=== PATIENT | male | born 2000 | race Two or more races ===

== ENCOUNTER 2018-09-27 00:02 | Emergency (ER) | payer SELFPAY ==
[~2018-09-27] VITALS: Ht 180.3 cm; Wt 108.5 kg
[2018-09-27 00:09] VITALS: BP 134/82
[2018-09-27 00:41] LABS: Basophils # (auto) 0 uL; Basophils % (auto) 0.3 % (0.0-2.0); Eosinophils # (auto) 0.1 uL; Eosinophils % (auto) 1.3 % (0.0-7.0); Hematocrit 50.5 % (41.0-53.0); Hemoglobin 17.1 g/dL (13.5-17.5); Lymphocytes # (auto) 1.9 uL; Mean Corpuscular Hemoglobin 29.8 pg (28.0-32.0); Mean Corpuscular Hgb Conc. 33.8 g/dL (32.0-36.0); Mean Corpuscular Volume 88.3 fL (80.0-100.0); Monocytes # (auto) 0.8 uL; Monocytes % (auto) 9.5 % (0.0-12.0); Neutrophils # (auto) 5.5 uL; Neutrophils % (auto) 65.9 % (37.0-80.0); Nucleated Red Blood Cells % 0.1 %; Platelet Count (auto) 230 10^3/uL (140-450); Red Blood Cells 5.73 10^6/uL (4.5-5.90); Red Cell Distribution Width 13.9 % (11.8-14.3); White Blood Cell 8.3 10^3/uL (4.4-10.8)
[2018-09-27 00:50] LABS: Albumin 3.9 g/dL (3.4-5.0); BUN/Creatinine Ratio 6.7; Calcium 8.6 mg/dL (8.5-10.1); Potassium 3.9 mmol/L (3.5-5.1)
[2018-09-27 00:53] LABS: Bilirubin, Total 0.3 mg/dL (0.2-1.0); Total Protein 8.6 g/dL (6.4-8.2)
== END 2018-09-27 05:38 | disposition left against medical advice (07) ==
LOC: ER 00:08
DX: R10.9 Unspecified abdominal pain (principal); Z53.21 Procedure and treatment not carried out due to patient leaving prior to being seen by health care provider
CPT/HCPCS: 36415; 74176; 80053; 83690; 85025

== ENCOUNTER 2018-12-29 02:09 | Emergency (ER) | payer SELFPAY ==
[~2018-12-29] VITALS: Ht 180.3 cm; Wt 113.4 kg
[2018-12-29 02:17] VITALS: BP 152/101
== END 2018-12-29 06:31 | disposition left against medical advice (07) ==
LOC: ER 02:11
DX: M79.642 Pain in left hand (principal); Z53.21 Procedure and treatment not carried out due to patient leaving prior to being seen by health care provider

== ENCOUNTER 2019-01-06 03:29 | Emergency (ER) | payer SELFPAY ==
[~2019-01-06] VITALS: Ht 180.3 cm; Wt 113.4 kg
[2019-01-06 03:40] VITALS: BP 156/89
[2019-01-06] MEDS ORDERED: HYDROcodone-ACET 5/325MG TAB PO ONE (07:15)
== END 2019-01-06 07:40 | disposition home or self-care (01) ==
LOC: ER 03:31
DX: S62.357A Nondisplaced fracture of shaft of fifth metacarpal bone, left hand, initial encounter for closed fracture (principal); W22.8XXA Striking against or struck by other objects, initial encounter; Y93.89 Activity, other specified; Y99.8 Other external cause status; Y92.89 Other specified places as the place of occurrence of the external cause
CPT/HCPCS: 73130

== ENCOUNTER 2019-10-05 15:18 | Inpatient (IN) | payer MEDICAID ==
[~2019-10-05] VITALS: Ht 172.7 cm; Wt 103.1 kg
[2019-10-05] MEDS ORDERED: SODIUM CHLORIDE 0.9% 1,000 ML IVB ONE (15:41)
[2019-10-05] MEDS ORDERED: PANTOPRAZOLE 40 MG/10 ML VIAL INJ IV STA (15:41)
[2019-10-05] MEDS ORDERED: ONDANSETRON HCL 4 MG/2 ML VIAL IV ONE (15:45)
[2019-10-05] MEDS ORDERED: MORPHINE SULFATE 4 MG/ML SYR/VIAL IV ONE (15:45)
[2019-10-05 16:33] LABS: Basophils # (auto) 0 10 ^3/uL (0-0.2); Basophils % (auto) 0.4 % (0.0-2.0); Eosinophils # (auto) 0.1 10 ^3/uL (0-0.8); Eosinophils % (auto) 1.2 % (0.0-7.0); Hematocrit 47.3 % (41.0-53.0); Hemoglobin 16.3 g/dL (13.5-17.5); Lymphocytes # (auto) 1.3 10 ^3/uL (0.4-5.4); Lymphocytes % (auto) 11.8 % (10.0-50.0); Mean Corpuscular Hgb Conc. 34.4 g/dL (32.0-36.0); Mean Corpuscular Volume 90.1 fL (80.0-100.0); Monocytes # (auto) 0.8 10 ^3/uL (0-1.3); Monocytes % (auto) 7.2 % (0.0-12.0); Neutrophils # (auto) 8.5 10 ^3/uL (1.6-8.6); Neutrophils % (auto) 79.4 % (37.0-80.0); Nucleated Red Blood Cells % 0.1 %; Platelet Count (auto) 229 10^3/uL (140-450); Red Blood Cells 5.24 10^6/uL (4.5-5.90); Red Cell Distribution Width 13.6 % (11.8-14.3); White Blood Cell 10.8 10^3/uL (4.4-10.8)
[2019-10-05 16:37] LABS: Albumin 3.5 g/dL (3.4-5.0); Calcium 8.6 mg/dL (8.5-10.1); Potassium 3.8 mmol/L (3.5-5.1)
[2019-10-05 16:45] LABS: Bilirubin, Total 0.7 mg/dL (0.2-1.0); Total Protein 8.3 g/dL (6.4-8.2)
[2019-10-05 18:30] LABS: BUN/Creatinine Ratio 8.4
[2019-10-05] MEDS ORDERED: NITROGLYCERIN 0.4 MG SL TAB SL PRN (18:30)
[2019-10-05] MEDS ORDERED: chlordiazePOXIDE HCL 25 MG CAP PO PRN (18:30)
[2019-10-05] MEDS ORDERED: PROMETHAZINE HCL 25 MG/ML 1ML IV PRN (18:30)
[2019-10-05] MEDS ORDERED: MORPHINE SULF INJ 2 MG/ML SYRINGE 1ML IV PRN (18:30)
[2019-10-05] MEDS: SODIUM CHLORIDE 0.9% 1,000 ML IV SCH (18:34)
[2019-10-05] MEDS ORDERED: IOHEXOL 300 MG/ML 100ML BOTTLE IJ ONE (18:41)
[2019-10-05] MEDS ORDERED: hydrALAZINE HCL 20 MG/ML VL IV ONE (20:15)
[2019-10-05] MEDS ORDERED: hydrALAZINE HCL 20 MG/ML VL ONE (20:23)
[2019-10-05] MEDS: MORPHINE SULF INJ 2 MG/ML SYRINGE 1ML IV PRN (21:10)
[2019-10-06] MEDS: hydrALAZINE HCL 20 MG/ML VL IV PRN (02:06)
[2019-10-06 02:39] LABS: Urine Bacteria NONE SEEN /hpf (None Seen); Urine Blood Negative /uL (Negative); Urine Specific Gravity 1.047 (1.001-1.035); Urine WBC 1 /hpf (0 - 3)
[2019-10-06 02:42] LABS: Alcohol, Urine < 3.0 mg/dL (0-5); Amphetamine Screen, Urine NEGATIVE (NEGATIVE); Barbiturate Scree,Urine NEGATIVE (NEGATIVE); Benzodiazephine Screen, Urine NEGATIVE (NEGATIVE); Cannabinoid Screen, Urine NEGATIVE (NEGATIVE); Cocaine Screen, Urine NEGATIVE (NEGATIVE); Opiate Scree,Urine POSITIVE (NEGATIVE); Phencyclidine Screen, Urine NEGATIVE (NEGATIVE)
[2019-10-06] MEDS: MORPHINE SULF INJ 2 MG/ML SYRINGE 1ML IV PRN (03:36)
[2019-10-06 03:40] VITALS: BP 152/82
[2019-10-06] MEDS: SODIUM CHLORIDE 0.9% 1,000 ML IV SCH ×2 (04:30→15:04)
[2019-10-06 05:00] VITALS: BP 144/73
[2019-10-06 06:48] LABS: Basophils # (auto) 0 10 ^3/uL (0-0.2); Basophils % (auto) 0.3 % (0.0-2.0); Eosinophils # (auto) 0.1 10 ^3/uL (0-0.8); Hematocrit 44.3 % (41.0-53.0); Hemoglobin 15.5 g/dL (13.5-17.5); Lymphocytes # (auto) 0.9 10 ^3/uL (0.4-5.4); Lymphocytes % (auto) 8.9 % (10.0-50.0); Mean Corpuscular Hemoglobin 31.1 pg (28.0-32.0); Mean Corpuscular Hgb Conc. 34.9 g/dL (32.0-36.0); Mean Corpuscular Volume 89.2 fL (80.0-100.0); Monocytes # (auto) 0.8 10 ^3/uL (0-1.3); Monocytes % (auto) 7.4 % (0.0-12.0); Neutrophils # (auto) 8.5 10 ^3/uL (1.6-8.6); Neutrophils % (auto) 82.4 % (37.0-80.0); Platelet Count (auto) 194 10^3/uL (140-450); Red Blood Cells 4.97 10^6/uL (4.5-5.90); Red Cell Distribution Width 13.8 % (11.8-14.3); White Blood Cell 10.3 10^3/uL (4.4-10.8)
[2019-10-06 07:03] LABS: Potassium 3.8 mmol/L (3.5-5.1)
[2019-10-06 07:12] LABS: Albumin 3.1 g/dL (3.4-5.0); BUN/Creatinine Ratio 7.4; Bilirubin, Total 0.8 mg/dL (0.2-1.0); Calcium 8.4 mg/dL (8.5-10.1); Total Protein 7.5 g/dL (6.4-8.2)
[2019-10-06 09:00] VITALS: BP 155/83
[2019-10-06 13:00] VITALS: BP 137/80
[2019-10-06] MEDS ORDERED: FAMOTIDINE (10MG/ML) 2ML VL IV ONE (13:00)
[2019-10-06] MEDS ORDERED: HYDROcodone-ACET 5/325MG TAB PO PRN (13:00)
[2019-10-06] MEDS ORDERED: THIAMINE HCL 100 MG TAB PO ONE (13:00)
[2019-10-06] MEDS: FOLIC ACID 1 MG, MULTIPLE VITAMIN 10 ML, MAGNESIUM SULF SDV 50% 8 MEQ in D5W 5% 1,000 ML INJ SCH (15:14)
[2019-10-06 17:00] VITALS: BP 151/88
[2019-10-06 22:00] VITALS: BP 158/80
[2019-10-07] MEDS: SODIUM CHLORIDE 0.9% 1,000 ML IV SCH ×3 (00:30→23:21)
[2019-10-07 05:00] VITALS: BP 156/99
[2019-10-07 06:06] LABS: Potassium 3.5 mmol/L (3.5-5.1)
[2019-10-07 06:15] LABS: BUN/Creatinine Ratio 5.7; Calcium 8.4 mg/dL (8.5-10.1); Total Protein 7.4 g/dL (6.4-8.2)
[2019-10-07 08:00] VITALS: BP 142/86
[2019-10-07 09:00] VITALS: BP 142/86
[2019-10-07] MEDS: FAMOTIDINE (10MG/ML) 2ML VL IV SCH (09:25)
[2019-10-07] MEDS: THIAMINE HCL 100 MG TAB PO SCH (09:25)
[2019-10-07] MEDS: FOLIC ACID 1 MG, MULTIPLE VITAMIN 10 ML, MAGNESIUM SULF SDV 50% 8 MEQ in D5W 5% 1,000 ML INJ SCH (12:00)
[2019-10-07] MEDS ORDERED: cloNIDine HCL 0.1 MG TAB PO ONE (12:15)
[2019-10-07 13:00] VITALS: BP 133/80
[2019-10-07 17:00] VITALS: BP 140/88
[2019-10-07] MEDS: cloNIDine HCL 0.1 MG TAB PO SCH (21:14)
[2019-10-07 22:00] VITALS: BP 153/102
[2019-10-08] MEDS: hydrALAZINE HCL 20 MG/ML VL IV PRN (04:26)
[2019-10-08 05:00] VITALS: BP 155/102
[2019-10-08] MEDS: SODIUM CHLORIDE 0.9% 1,000 ML IV SCH (06:30)
[2019-10-08 09:00] VITALS: BP 127/78
[2019-10-08] MEDS: FAMOTIDINE (10MG/ML) 2ML VL IV SCH (10:00)
[2019-10-08] MEDS: THIAMINE HCL 100 MG TAB PO SCH (10:00)
[2019-10-08] MEDS: cloNIDine HCL 0.1 MG TAB PO SCH (10:00)
[2019-10-08] MEDS ORDERED: FOLIC ACID 1 MG, MULTIPLE VITAMIN 10 ML, MAGNESIUM SULF SDV 50% 8 MEQ, THIAMINE INJ 100... INJ SCH ×5 (12:00)
[2019-10-08 13:00] VITALS: BP 140/85
[2019-10-08 13:35] VITALS: BP 155/102
== END 2019-10-08 14:30 | disposition home or self-care (01) | DRG 282 ==
LOC: ER 15:18 → OVERFLOW 15:19 → WEST WING 10-06 02:43
PROVIDERS: ADMIT Nurse Practitioner Acute Care; ATTEND Internal Medicine
DX: K85.20 Alcohol induced acute pancreatitis without necrosis or infection (principal); K76.0 Fatty (change of) liver, not elsewhere classified; E66.9 Obesity, unspecified; I10 Essential (primary) hypertension; F10.10 Alcohol abuse, uncomplicated; Z68.34 Body mass index [BMI] 34.0-34.9, adult
CPT/HCPCS: 36415; 74177; 76705; 80053; 80061; 80307; 81001; 83690; 85025; 96361; 96374; 96375; C9113; G0378; J2405; J3490

== ENCOUNTER 2023-02-23 19:21 | Inpatient (IN) | payer MEDICAID ==
[~2023-02-23] VITALS: Ht 167.6 cm; Wt 40.0 kg
[2023-02-23] MEDS ORDERED: SODIUM CHLORIDE 0.9% 1,000 ML IVB STA (19:45)
[2023-02-23] MEDS ORDERED: NALOXONE HCL 1MG/ML 2ML SYRINGE IV ONE ×2 (19:45→20:15)
[2023-02-23 20:00] VITALS: RESP 10; O2SAT 96
[2023-02-23] MEDS ORDERED: SODIUM CHLORIDE 0.9% 2,000 ML IV ONE (20:15)
[2023-02-23] MEDS ORDERED: PIPERACILLIN-TAZOB 3.375GM 100 ML IV ONE (20:15)
[2023-02-23 20:36] LABS: Eosinophils # (auto) 0 10 ^3/uL (0-0.8); Eosinophils % (auto) 0.2 % (0.0-7.0); Hemoglobin 13.3 g/dL (13.5-17.5); Mean Corpuscular Volume 89.5 fL (80.0-100.0)
[2023-02-23 20:39] LABS: Basophils # (auto) 0.1 10 ^3/uL (0-0.2); Basophils % (auto) 0.3 % (0.0-2.0); Hematocrit 43.1 % (41.0-53.0); Lymphocytes % (auto) 6.2 % (10.0-50.0); Mean Corpuscular Hemoglobin 27.6 pg (28.0-32.0); Mean Corpuscular Hgb Conc. 30.8 g/dL (32.0-36.0); Monocytes # (auto) 1.3 10 ^3/uL (0-1.3); Monocytes % (auto) 8.1 % (0.0-12.0); Neutrophils # (auto) 13.9 10 ^3/uL (1.6-8.6); Neutrophils % (auto) 85.2 % (37.0-80.0); Red Blood Cells 4.82 10^6/uL (4.5-5.90); Red Cell Distribution Width 13.7 % (11.8-14.3); White Blood Cell 16.4 10^3/uL (4.4-10.8)
[2023-02-23] MEDS: VANCOMYCIN 1GM/250ML 250 ML IV ONE ×2 (20:45→23:20)
[2023-02-23 21:28] LABS: INR 1.36 (0.9-1.15)
[2023-02-23 21:31] LABS: Acetaminophen < 2.0 UG/ML (10.0-20.0); Alanine Aminotransferase 37 U/L (7-40); Albumin 3.7 g/dL (3.2-4.8); Alkaline Phosphatase 239 U/L (46-116); Anion Gap 9 (5-15); Aspartate Aminotransferase 45 U/L (13-40); BUN/Creatinine Ratio 13.5 (10.0-20.0); Bilirubin, Total 0.3 mg/dL (0.2-1.0); Blood Alcohol < 3.0 mg/dL (<10); Blood Urea Nitrogen 13 mg/dL (9-23); Calcium 7.9 mg/dL (8.7-10.4); Carbon Dioxide 23 mmol/L (20-30); Chloride 102 mmol/L (98-107); Lactic Acid w/Reflex 3.6 mmol/L (0.4-2.0); Lipase 42 U/L (12-53); Magnesium 1.5 mg/dL (1.6-2.6); Potassium 4.7 mmol/L (3.5-5.1); Sodium 134 mmol/L (136-145); Total Protein 7.2 g/dL (5.7-8.2)
[2023-02-23] MEDS ORDERED: NOREPINEPHRINE 8 MG/250ML KIT 250 ML IV SCH (21:45)
[2023-02-23 21:46] LABS: Salicylate < 3.0 mg/dL (2.8-20.0)
[2023-02-23 21:52] LABS: Glucose 567 mg/dL (74-106)
[2023-02-23] MEDS ORDERED: SODIUM CHLORIDE 0.9% 1,000 ML IV ONE (22:15)
[2023-02-23] MEDS ORDERED: InsuLIN REG 1unit/0.01ml Soln (100units/ml) IV ONE (22:15)
[2023-02-24 02:27] VITALS: RESP 9; TEMP 98.4; O2SAT 94
[2023-02-24] MEDS ORDERED: IBUPROFEN 600 MG TAB PO PRN (03:45)
[2023-02-24] MEDS ORDERED: VANCOMYCIN PER PHARMACY 0 MG IV SCH (03:45)
[2023-02-24] MEDS ORDERED: HYDROcodone-ACET 5/325MG TAB PO PRN (03:45)
[2023-02-24] MEDS ORDERED: DEXTROSE (50%) 50ML SYRG IV PRN (03:45)
[2023-02-24] MEDS ORDERED: SODIUM CHLORIDE 0.9% 1,000 ML IV SCH (03:45)
[2023-02-24] MEDS ORDERED: ONDANSETRON HCL 4 MG/2 ML VIAL IV PRN (03:45)
[2023-02-24] MEDS ORDERED: DOCUSATE SOD 100 MG CAP PO PRN (03:45)
[2023-02-24] MEDS ORDERED: MAGNESIUM SULFATE 1GM/100ML 100 ML IV ONE (04:00)
[2023-02-24] MEDS ORDERED: NITROGLYCERIN 0.4 MG SL TAB SL PRN (04:45)
[2023-02-24] MEDS ORDERED: MORPHINE SULFATE INJ 2 MG/ml SYRG IV PRN (04:45)
[2023-02-24] MEDS: ACCU-CHEK COMFORT CURVE STRIP VI SCH ×3 (04:46→12:17)
[2023-02-24] MEDS: InsuLIN REG 1unit/0.01ml Soln (100units/ml) SC SCH ×3 (04:54→12:20)
[2023-02-24 05:09] LABS: Basophils # (auto) 0 10 ^3/uL (0-0.2); Basophils % (auto) 0.6 % (0.0-2.0); Eosinophils # (auto) 0.1 10 ^3/uL (0-0.8); Eosinophils % (auto) 1.5 % (0.0-7.0); Hematocrit 33.4 % (41.0-53.0); Hemoglobin 11.1 g/dL (13.5-17.5); Lymphocytes # (auto) 1.3 10 ^3/uL (0.4-5.4); Lymphocytes % (auto) 19.8 % (10.0-50.0); Mean Corpuscular Hemoglobin 27.5 pg (28.0-32.0); Mean Corpuscular Hgb Conc. 33.2 g/dL (32.0-36.0); Mean Corpuscular Volume 82.8 fL (80.0-100.0); Monocytes # (auto) 0.7 10 ^3/uL (0-1.3); Monocytes % (auto) 11.2 % (0.0-12.0); Neutrophils # (auto) 4.4 10 ^3/uL (1.6-8.6); Neutrophils % (auto) 66.9 % (37.0-80.0); Nucleated Red Blood Cells % 0.1 %; Red Blood Cells 4.03 10^6/uL (4.5-5.90); Red Cell Distribution Width 13.4 % (11.8-14.3); White Blood Cell 6.5 10^3/uL (4.4-10.8)
[2023-02-24 05:23] LABS: Alanine Aminotransferase 37 U/L (7-40); Albumin 3.9 g/dL (3.2-4.8); Alkaline Phosphatase 226 U/L (46-116); Anion Gap 4 (5-15); Aspartate Aminotransferase 44 U/L (13-40); Bilirubin, Total 0.3 mg/dL (0.2-1.0); Blood Urea Nitrogen 11 mg/dL (9-23); Calcium 8.2 mg/dL (8.7-10.4); Carbon Dioxide 29 mmol/L (20-30); Chloride 102 mmol/L (98-107); Sodium 135 mmol/L (136-145); Total Protein 7.5 g/dL (5.7-8.2)
[2023-02-24 05:26] LABS: BUN/Creatinine Ratio 15.7 (10.0-20.0)
[2023-02-24 06:09] LABS: Glucose 260 mg/dL (74-106)
[2023-02-24 08:24] LABS: Urine Bacteria FEW /hpf (None Seen); Urine Blood Negative /uL (Negative); Urine Clarity Clear (Clear); Urine Color Straw (Yellow); Urine Protein, UAD Negative (Negative); Urine Specific Gravity 1.019 (1.001-1.035); Urine Urobilinogen Normal (Negative); Urine WBC 23 /hpf (0 - 3); Urine pH 5.5 (5.0-8.0)
[2023-02-24 08:30] VITALS: PULSE 77; RESP 16; O2SAT 98
[2023-02-24 08:38] VITALS: BP 143/106; RESP 16; O2SAT 98
[2023-02-24 09:08] LABS: Amphetamine Screen, Urine Neg (NEGATIVE); Barbiturate Scree,Urine Neg (NEGATIVE); Benzodiazephine Screen, Urine Neg (NEGATIVE); Cocaine Screen, Urine Pos (NEGATIVE)
[2023-02-24 09:09] LABS: Cannabinoid Screen, Urine Pos (NEGATIVE); Opiate Scree,Urine Neg (NEGATIVE); Phencyclidine Screen, Urine Neg (NEGATIVE)
[2023-02-24 09:49] LABS: Triglycerides 43 mg/dL (< 150)
[2023-02-24 09:50] LABS: LDL Cholesterol 39 mg/dL (< 100)
[2023-02-24 09:51] LABS: Cholesterol 94 mg/dL (< 200); HDL Cholesterol 43 mg/dL (40-59)
[2023-02-24] MEDS ORDERED: PIPERACILLIN-TAZOB 3.375GM 100 ML IV SCH (10:00)
[2023-02-24] MEDS: MAGNESIUM SULFATE 1GM/100ML 100 ML IV SCH ×2 (10:41→11:00)
[2023-02-24 12:00] VITALS: PULSE 72
[2023-02-24] MEDS ORDERED: VANCOMYCIN 750mg/250ml 250 ML IV SCH (12:00)
[2023-02-24] MEDS ORDERED: APIXABAN 5 MG TAB PO SCH (22:00)
[2023-02-24] MEDS ORDERED: AMIODARONE HCL 200 MG TAB PO SCH (22:00)
[2023-02-25] MEDS ORDERED: APIX5TAB PO (09:06)
[2023-02-25] MEDS ORDERED: CAR3125T OR (09:06)
[2023-02-25] MEDS ORDERED: ASPI-325 PO (09:06)
[2023-02-25] MEDS ORDERED: LISI-275 PO (09:06)
== END 2023-02-24 14:48 | disposition home or self-care (01) | DRG 812 ==
LOC: ER 19:21 → EDBD 19:21 → TELE 02-24 04:47
PROVIDERS: ADMIT Nurse Practitioner Family; ATTEND Nurse Practitioner Family
DX: T40.601A Poisoning by unspecified narcotics, accidental (unintentional), initial encounter (principal); G92.9 Unspecified toxic encephalopathy; E10.42 Type 1 diabetes mellitus with diabetic polyneuropathy; E87.8 Other disorders of electrolyte and fluid balance, not elsewhere classified; E87.1 Hypo-osmolality and hyponatremia; E83.42 Hypomagnesemia; I48.0 Paroxysmal atrial fibrillation; E10.65 Type 1 diabetes mellitus with hyperglycemia; Z87.19 Personal history of other diseases of the digestive system; Y92.89 Other specified places as the place of occurrence of the external cause; T40.5X1A Poisoning by cocaine, accidental (unintentional), initial encounter; T40.411A Poisoning by fentanyl or fentanyl analogs, accidental (unintentional), initial encounter
CPT/HCPCS: 36415; 70450; 71045; 80053; 80061; 80307; 80320; 80329; 81001; 82010; 82962; 83036; 83605; 83690; 83735; 83880; 84443; 84484; 85025; 85379; 85610; 85730; 87040; 93005; 93306; 96365; 96375; G0378; J1815; J2543

== ENCOUNTER 2024-06-02 12:08 | Emergency (ER) | payer MEDICAID, OTHER ==
[~2024-06-02] VITALS: Ht 180.3 cm; Wt 52.0 kg
[~2024-06-02 12:08] MED LIST: APIX5TAB PO; ASPI-325 PO; CARV-214 OR; LISI-275 PO
[2024-06-02] MEDS ORDERED: DEXTROSE (50%) 50ML SYRG IV PRN (12:30)
--- NOTE | 2024-06-02 12:52 | ED.PDOC ---
History of Present Illness HPI Comments 23 yo male w hx diabetes, DKA, pancreatitis, opiate abuse here today with complaints of generalized body aches, high blood sugar reading "high" at home despite reportedly taking his humalog. No F/C/N/V/D. No trauma. No rash. No respiratory distress. No abdominal pain. No constipation. No other pain or syx. Also states he was diagnosed with penumonia recently and is requesting an albuterol breathing treatment and a sandwich. Chief Complaint: Hyperglycemia Time Seen by MD: 12:19 Primary Care Provider: Kitty Allergies: Coded Allergies: NO KNOWN ALLERGIES (Unverified , 09/27/18) Home Meds Active Scripts Apixaban Base (ELIQUIS) 5 Mg Tab, 5 MG PO BID for 30 Days, #60 TAB Prov:ARA HOLLINGSWORTH MD 02/25/23 Aspirin (Aspirin Low Dose) 81 Mg Tab, 81 MG PO DAILY for 100 Days, #100 TAB Prov:ARA HOLLINGSWORTH MD 02/25/23 Carvedilol (COREG) 3.125 Mg Tab, 3.125 MG OR BID for 30 Days, #60 TAB Prov:ARA HOLLINGSWORTH MD 02/25/23 Lisinopril (Lisinopril) 5 Mg Tab, 5 MG PO DAILY for 30 Days, #30 TAB Prov:ARA HOLLINGSWORTH MD 02/25/23 Information Source: Patient Mode of Arrival: Wheelchair Severity: Mild Timing: Days Duration: Since onset Past Medical History PAST MEDICAL HISTORY: DM Surgical History: Denies all surgeries Family History Family History: Reviewed,noncontributory to illness, No family hx of Cancer, No family hx of DM, No family hx of Heart renita Social History Smoker: Non-Smoker Alcohol: Occasionally Drugs: Denies Drug Use Lives In: Home Constitutional: reports: others (body aches) EENTM: denies: blurred vision, double vision, ear bleeding, ear discharge, ear drainage, ear pain, ear ringing, eye pain, eye redness, hearing loss, mouth pain, mouth swelling, nasal discharge, nose bleeding, nose congestion, nose pain, photophobia, tearing, throat pain, throat swelling, voice changes, others Respiratory: denies: cough, hemoptysis, orthopnea, SOB at rest, shortness of breath, SOB with excertion, stridor, wheezing, others Cardiovascular: denies: chest pain, dizzy spells, diaphoresis, Dyspnea on exertion, edema, irregular heart beat, left arm pain, lightheadedness, palpitations, PND, syncope, others Gastrointestinal: denies: abdomen distended, abdominal pain, blood streaked bowels, constipated, diarrhea, dysphagia, difficulty swallowing, hematemesis, melena, nausea, poor appetite, poor fluid intake, rectal bleeding, rectal pain, vomiting, others Genitourinary: denies: burning, dysuria, flank pain, frequency, hematuria, incontinence, penile discharge, penile sore, pain, testicle pain, testicle swelling, urgency, others Neurological: denies: dizziness, fainting, headache, left sided numbness, left sided weakness, numbness, paresthesia, pre-existing deficit, right sided numbness, right sided weakness, seizure, speech problems, tingling, tremors, weakness, others Musculoskeletal: denies: back pain, gout, joint pain, joint swelling, muscle pain, muscle stiffness, neck pain, others All Other Systems: Reviewed and Negative Physical Exam General Appearance: No Apparent Distress, Normal HEENT: Normal ENT Inspection, Pharynx Normal, TMs Normal Neck: Full Range of Motion, Non-Tender, Normal, Normal Inspection Respiratory: Chest Non-Tender, Lungs Clear, No Accessory Muscle Use, No Respiratory Distress, Normal Breath Sounds Cardiovascular: No Edema, No Murmur, No Gallop, Normal Peripheral Pulses, Regular Rate/Rhythm Breast Exam: Deferred Gastrointestinal: No Organomegaly, Non Tender, No Pulsatile Mass, Normal Bowel Sounds, Soft Genitalia: Deferred Pelvic: Deferred Rectal: Deferred Extremities: No calf tenderness, Normal capillary refill, Normal inspection, Normal range of motion, Non-tender, No pedal edema Musculoskeletal : Apperance: Normal Neurologic: Alert, consultant rn II-XII nml as Tested, No Motor Deficits, Normal Affect, Normal Mood, No Sensory Deficits Cerebellar Function: Normal Reflexes: Normal Skin: Dry, Normal Color, Warm Lymphatic: No Adenopathy Was a procedure done? Was a procedure done?: No Differential Dx Considerations may include: hyperglycemia, DKA, UBALDO, viral URI, medication noncompliance X-Ray, Labs, Meds, VS Vital Signs Date Time Temp Pulse Resp B/P (MAP) Pulse Ox O2 Delivery O2 Flow Rate FiO2 06/02/24 16:21 95 Room Air* 0 21 06/02/24 16:21 20 95 Room Air* 0 21 06/02/24 15:32 114 14 146/103 06/02/24 15:22 114 14 146/103 (117) 100 06/02/24 12:23 99.1 143 20 128/90 (103) 97 Lab Test 06/02/24 13:30 06/02/24 12:54 Range/Units White Blood Count 9.2 4.4-10.8 10^3/uL Red Blood Count 4.61 4.5-5.90 10^6/uL Hemoglobin 12.4 L 13.5-17.5 g/dL Hematocrit 37.4 L 41.0-53.0 % Mean Corpuscular Volume 81.2 80.0-100.0 fL Mean Corpuscular Hemoglobin 27.0 L 28.0-32.0 pg Mean Corpuscular Hemoglobin Concent 33.2 32.0-36.0 g/dL Red Cell Distribution Width 15.0 H 11.8-14.3 % Platelet Count 387 140-450 10^3/uL Mean Platelet Volume 7.6 6.9-10.8 fL Neutrophils (%) (Auto) 65.8 37.0-80.0 % Lymphocytes (%) (Auto) 25.6 10.0-50.0 % Monocytes (%) (Auto) 7.4 0.0-12.0 % Eosinophils (%) (Auto) 0.5 0.0-7.0 % Basophils (%) (Auto) 0.7 0.0-2.0 % Neutrophils # (Auto) 6.0 1.6-8.6 10 ^3/uL Lymphocytes # (Auto) 2.3 0.4-5.4 10 ^3/uL Monocytes # (Auto) 0.7 0-1.3 10 ^3/uL Eosinophils # (Auto) 0 0-0.8 10 ^3/uL Basophils # (Auto) 0.1 0-0.2 10 ^3/uL Nucleated Red Blood Cells 0.0 % Sodium Level 127 L 136-145 mmol/L Potassium Level 4.2 3.5-5.1 mmol/L Chloride Level 93 L 98-107 mmol/L Carbon Dioxide Level 25 20-31 mmol/L Anion Gap 9 5-15 Blood Urea Nitrogen 11 9-23 mg/dL Creatinine 0.93 0.700-1.30 mg/dL Glomerular Filtration Rate Calc 117 >90 mL/min BUN/Creatinine Ratio 11.8 10.0-20.0 Serum Glucose 527 *H 74-106 mg/dL Serum Osmolality 303 H 278-298 mOsm/kg Calcium Level 9.8 8.7-10.4 mg/dL Phosphorus Level 2.9 2.4-5.1 mg/dL Magnesium Level 1.9 1.6-2.6 mg/dL Lipase 30 12-53 U/L Beta-Hydroxybutyric Acid 0.078 < 0.4 mmol/L Blood Gas Specimen Type Arterial Blood Gas Sample Site Right radial Blood Gas Patient Temperature 37.0 Arterial Blood Date Drawn Arterial Blood pH 7.439 7.350-7.450 Arterial Blood Partial Pressure CO2 43.3 35.0-48.0 mmHg Arterial Blood Partial Pressure O2 73.6 L 83.0-108.0 mmHg Arterial Blood HCO3 28.7 H 21.0-28.0 mmol/L Arterial Blood Oxygen Saturation 94.7 94.0-98.0 % Arterial Blood Base Excess 4.0 H -2.0-3.0 mmol/L Arterial Blood Oxyhemoglobin 92.9 L 94.0-98.0 % Arterial Blood Carboxyhemoglobin 1.5 0.5-1.5 % Arterial Blood Methemoglobin 0.4 0.0-1.5 % Karl Test Yes Blood Gas Total Hemoglobin 12.70 L 13.5-17.5 g/dL Blood Gas Modality Room air Blood Gas Spontaneous Rate 18 FiO2 % 21.0 Current Medications Medications (Trade) Dose Ordered Sig/Juliana Route Start Time Stop Time Status Last Admin Sodium Chloride 1,000 ml @ 1,000 mls/hr Q1H ONCE IV 06/02/24 12:30 06/02/24 13:29 DC 06/02/24 15:33 Ondansetron HCl (Zofran) 4 mg ONCE ONCE IV 06/02/24 14:30 06/02/24 15:15 DC 06/02/24 15:32 Hydromorphone HCl (Dilaudid Injection) 0.25 mg ONCE ONCE IV 06/02/24 15:30 06/02/24 15:31 DC 06/02/24 15:32 Albuterol (Ventolin Medneb) 5 mg ONCE ONCE NEB 06/02/24 15:45 06/02/24 15:46 DC 06/02/24 15:45 X-Ray, Labs, Meds, VS Comment 23 yo male here with c/o body aches and hyperglycemia, found to have sugar in the 500s. Labs notable for normal pH, no elevation in ketones. Doubt DKA. Doubt HHS. Doubt appy, ignacio. Patient was given 2L of fluids, oral hydration, and repeat sugar 280. Patient stated he had enough of his humalog at home but states the reason for his high sugar is "I eat like a pig." Patient was also given an albuterol treatment as per his request with clear lungs on auscultation afterwards. Patient was discharged home with strict instructions to follow-up with his PCP in 2-3 days for reeval and to return immediately to the ER for signs of fevers, PO intolerance, resp distress, abdominal pain or any other concerning pain or symptoms. Patient tolerating PO. Patient discharged home in stable condition in no distress. Time of 1ST Reevaluation: 16:13 Reevaluation 1ST: Improved Patient Education/Counseling: Diagnosis, Treatment, Prognosis, Need For Follow Up Family Education/Counseling: No Family Present Departure 1 Departure Time of Disposition: 16:41 Impression: Primary Impression: Hyperglycemia Additional Impression: History of pneumonia Disposition: 01 HOME / SELF CARE / HOMELESS Condition: Stable Discharged With: Self Critical Care Note Critical Care Time?: No Stability Stability form required: ALTAF Dean MD Jun 02, 2024 12:52
[2024-06-02 13:57] LABS: Basophils # (auto) 0.1 10 ^3/uL (0-0.2); Basophils % (auto) 0.7 % (0.0-2.0); Eosinophils # (auto) 0 10 ^3/uL (0-0.8); Eosinophils % (auto) 0.5 % (0.0-7.0); Hematocrit 37.4 % (41.0-53.0); Hemoglobin 12.4 g/dL (13.5-17.5); Lymphocytes # (auto) 2.3 10 ^3/uL (0.4-5.4); Lymphocytes % (auto) 25.6 % (10.0-50.0); Mean Corpuscular Hgb Conc. 33.2 g/dL (32.0-36.0); Mean Corpuscular Volume 81.2 fL (80.0-100.0); Monocytes # (auto) 0.7 10 ^3/uL (0-1.3); Monocytes % (auto) 7.4 % (0.0-12.0); Neutrophils % (auto) 65.8 % (37.0-80.0); Platelet Count (auto) 387 10^3/uL (140-450); Red Blood Cells 4.61 10^6/uL (4.5-5.90); White Blood Cell 9.2 10^3/uL (4.4-10.8)
[2024-06-02 14:04] LABS: Potassium 4.2 mmol/L (3.5-5.1)
[2024-06-02 14:05] LABS: Anion Gap 9 (5-15); Calcium 9.8 mg/dL (8.7-10.4); Carbon Dioxide 25 mmol/L (20-31)
[2024-06-02 14:06] LABS: Chloride 93 mmol/L (98-107); Sodium 127 mmol/L (136-145)
[2024-06-02 14:10] LABS: BUN/Creatinine Ratio 11.8 (10.0-20.0); Blood Urea Nitrogen 11 mg/dL (9-23)
[2024-06-02 14:11] LABS: Magnesium 1.9 mg/dL (1.6-2.6)
[2024-06-02 14:12] LABS: Phosphorus 2.9 mg/dL (2.4-5.1)
[2024-06-02 14:16] LABS: Glucose 527 mg/dL (74-106)
[2024-06-02] MEDS ORDERED: MORPHINE SULFATE 4 MG/ML SYR/VIAL IV ONE (14:30)
[2024-06-02 15:22] VITALS: PULSE 114; RESP 14; O2SAT 93
[2024-06-02] MEDS ORDERED: HYDROmorphone HCL 2 MG/ML VL/or syr IV ONE (15:30)
[2024-06-02] MEDS: ONDANSETRON HCL 4 MG/2 ML VIAL IV ONE (15:32)
[2024-06-02] MEDS: HYDROmorphone HCL 2 MG/ML VL/or syr IV ONE (15:32)
[2024-06-02] MEDS: SODIUM CHLORIDE 0.9% 1,000 ML IV ONE ×2 (15:33→18:32)
[2024-06-02] MEDS: ALBUTEROL SULF 2.5 MG/0.5ML(0.5%) NEB SOLN NEB ONE (15:45)
[2024-06-02] MEDS: ACCU-CHEK COMFORT CURVE STRIP VI SCH (16:30)
[2024-06-02] MEDS: KETOROLAC TROMETH 30 MG/ML 1ML VIAL IV ONE (16:45)
[2024-06-02 17:15] VITALS: O2SAT 99
[2024-06-02 17:16] VITALS: BP 102/73; PULSE 105; RESP 16
== END 2024-06-02 18:42 | disposition home or self-care (01) ==
LOC: ER 12:08
DX: E11.65 Type 2 diabetes mellitus with hyperglycemia (principal); Z79.899 Other long term (current) drug therapy; Z79.84 Long term (current) use of oral hypoglycemic drugs
CPT/HCPCS: 36415; 36600; 80048; 82010; 82805; 83690; 83735; 83930; 84100; 85025; 96361; 96374; 96375; 99285; J1171; J1885; J2405; J7030